=== PATIENT | female | born 1980 | race Caucasian/White ===

== ENCOUNTER 2016-06-26 15:34 | Emergency (ER) | payer OTHER ==
--- NOTE | 2016-06-26 15:48 | UCPHY ---
[id number] year old female, in general good health, who is concerned about fever that has been persistent for more than a week. She reports an over three week history of nonproductive cough with occasional tussive emesis. Last week she developed sore throat, myalgias, and fever. She was started on Tamiflu but her symptoms persisted. Two days ago she started azithromycin and has taken two doses of this antibiotic. Her myalgias and sore throat have resolved but she has persistent intermittent fever. She has been taking ibuprofen on and off. She reports temperatures of 37 C, which she feels is high for her. She continues with fatigue. She denies headache, earache, current sore throat, chest pain, vomiting, diarrhea, urinary symptoms. REVIEW OF SYSTEMS: A ten point review of systems was performed and is negative with the exception of the items mentioned in the HPI. Source: Patient Exam Limitations: No limitations - Medical/Surgical History Other PMH: Negative. - Family History Significant Family History: No pertinent family hx - Social History Smoking Status: Never smoked Drug Use: None Additional Social History: She is . She and her have one child. She recently moved to .. from the [facility]. - Physical Exam Exam: General Appearance: Alert. Vital signs reviewed. BP 130/89. Afebrile. Eyes: Pupils equal and round, no conjunctival injection, no discharge. Anicteric. ENT, Mouth: Mucous membranes are moist, no oropharyngeal erythema or edema. Neck: No lymphadenopathy, supple. Trachea midline. Respiratory: Lungs are clear to auscultation; no wheezes, rales, or rhonchi. Cardiovascular: Regular rate and rhythm; no murmur, rub, or gallop. Gastrointestinal: Abdomen is soft and nontender, no masses or organomegaly, bowel sounds normal. Skin: Warm and dry, no rashes on exposed skin, normal color. Back: Nontender to palpation over the thoracolumbar spine. No CVAT. Extremities: No lower extremity edema, no calf tenderness or swelling. Neurological: Alert and oriented. Moving all four extremities easily and equally. Psychiatric: Normal affect. Constitutional: Initial Vital Signs Temperature (C) 36.6 C 06/26/16 15:53 Heart Rate 77 06/26/16 15:53 Respiratory Rate 20 06/26/16 15:53 Blood Pressure 130/89 H 06/26/16 15:53 O2 Sat (%) 97 06/26/16 15:53 O2 Delivery Mode Room Air Allergies/Adverse Reactions: No Known Allergies Allergy (Unverified 06/26/16 15:52) Home Medications: Medication Instructions Recorded Zithromax 06/26/16 Medical Decision Making ED Course/Re-evaluation: Persistent symptoms of respiratory infection. We discussed definition of fever- -in my opinion a temperature of 37 C does not constitute fever. Nevertheless, she continues with fatigue and general malaise after over three weeks of a respiratory illness. Overall though she seems to be improving with no sore throat and diminishing cough. It is likely that she had influenza last week and is continuing to recover. I wonder about the possibility of pertussis--she has just started azithromycin and will finish out the five day course. We discussed symptomatic treatment. I do not suspect pneumonia or bronchitis. She is not hypoxic, did not cough during out interview. Departure - Departure Disposition: Home, Routine, Self-Care Clinical Impression: Upper respiratory infection Qualifiers: Qualifier Code: (J06.9) Acute upper respiratory infection, unspecified Condition: Good Instructions: Upper Respiratory Infection (ED), Pertussis (ED) Additional Instructions: I think that you could have pertussis. If so, you are on the right medications for that. I recommend that you take tylenol and ibuprofen, on a regular basis, alternating between the two. Adult Pain & Fever Control: We recommend Acetaminophen (Tylenol) and Ibuprofen (Motrin,Advil) for pain and fever control. When fever is high or pain severe, both drugs can be used at the same time, but at different intervals. Please note the time differences. Your dose is: Acetaminophen 650mg every 4 to 6 hours Ibuprofen 400mg every 8 hours with food OR Note: do not take Acetaminophen with Hydrocodone (Vicodin, Lortab) or Oycodone (Percocet). These medications also contain Acetaminophen. No more than 3000mg of Acetaminophen should be taken in 24 hours (for an adult). Continue to get lots of rest and drink lots of fluids. Follow up with Dr. Clay as needed. Referrals: Shaila Clay MD [Primary Care Provider] - As per Instructions - PQRS PQRS Measurement: Not applicable.
[2016-06-26 15:55] VITALS: BP 130/89; PULSE 77; RESP 20; TEMP 98; O2SAT 97
== END 2016-06-26 16:10 | disposition home or self-care (01) ==
LOC: CED 15:34
DX: J06.9 Acute upper respiratory infection, unspecified (principal)
CPT/HCPCS: 99213-PO; G0463-PO